=== PATIENT | female | born 1940 | race Caucasian/White ===

== ENCOUNTER 2016-03-31 06:37 | Day surgery (SDC) | payer MEDICARE, BC ==
[2016-03-31] MEDS ORDERED: Lactated Ringers 1,000 ML IV SCH ×2 (07:30→11:30)
[2016-03-31] MEDS ORDERED: Propofol 200 MG/20 ML SDV IV ONE (08:00)
[2016-03-31] MEDS ORDERED: Midazolam 1 MG/ML 2 ML SDV IV ONE (08:00)
--- NOTE | 2016-03-31 08:10 | PCM.HP ---
H&P History of Present Illness - General Date of Service: 03/31/16 Admit Problem/Dx: Admission Diagnosis/Problem Admission Diagnosis/Problem Colonoscopy Hematochezia for the past weel; Has Hx of polyps and FH of Colon Ca Source of Information: Patient History Limitations: Reports: No limitations - Related Data Allergies/Adverse Reactions: Allergies Allergy/AdvReac Type Severity Reaction Status Date / Time aspirin Allergy Severe Anaphylactic Verified 03/31/16 06:58 Shock Home Medications: Home Meds Albuterol [Ventolin HFA] 2 puff INH QID 04/14/13 [History] Fluticasone Propionate [Flonase] 1 spray NASBOTH DAILY 04/14/13 [History] Levothyroxine Sodium [Synthroid] 112 mcg PO ACBRK 04/14/13 [History] Losartan/Hydrochlorothiazide [Hyzaar 100-25] 25 - 100 mg PO DAILY 04/14/13 [ History] Metoprolol Succinate [Toprol XL 100mg] 100 mg PO DAILY 04/14/13 [History] Montelukast [Singulair] 10 mg PO BEDTIME 04/14/13 [History] Multivitamin with Minerals [Multiple Vitamin] 1 tab PO DAILY 04/14/13 [History] Sertraline [Zoloft] 25 mg PO DAILY 04/14/13 [History] amLODIPine [Norvasc] 10 mg PO DAILY 04/14/13 [History] atorvaSTATin [Lipitor] 20 mg PO DAILY 04/14/13 [History] hydrOXYzine Pamoate [Vistaril] 25 mg PO ASDIRECTED PRN 04/14/13 [History] Fluticasone/Salmeterol [Advair 250-50 Diskus] 1 puff PO BID PRN 03/30/16 [ History] Past Medical History HEENT History: Reports: Allergic rhinitis Other HEENT History: OCC POST NASAL DRIP Cardiovascular History: Reports: High cholesterol, Hypertension Respiratory History: Reports: Asthma Gastrointestinal History: Reports: Colon polyp, Other (see below) Other Gastrointestinal History: 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: , 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 Other OB/BYN History: PARA IV AB II Musculoskeletal History: Reports: Fracture Other Musculoskeletal History: LEFT METATARSAL FX 04/2015 Neurological History: Reports: Other (see below) Other Neuro History: FREQUENT H/A, STATES MOSTLY FROM SINUS Psychiatric History: Reports: Depression Endocrine/Metabolic History: Reports: Hypothyroidism, Obesity/BMI 30+, Other ( see below) Other Endocrine/Metabolic History: PRE DIABETES Immunologic History: Reports: None Oncologic (Cancer) History: Reports: None - Infectious Disease History Infectious Disease History: Reports: Chicken pox, Measles - Past Surgical History Head Surgeries/Procedures: Reports: None HEENT Surgical History: Reports: Naso-sinus surgery, Oral surgery, Tonsillectomy Other HEENT Surgeries/Procedures: WISDOM TEETH EXTRACTION, NUMEROUS NASAL POLYP SURGIES GI Surgical History: Reports: Colonoscopy Female Surgical History: Reports: D&C, Hysterectomy Other Female Surgeries/Procedures: JACKSON Musculoskeletal Surgical History: Reports: Knee replacement Other Musculoskeletal Surgeries/Procedures:: BILATERAL KNEE REPLACEMENTS Social & Family History - Tobacco Use Smoking Status *Q: Never Smoker - Caffeine Use Caffeine Use: Reports: Coffee - Alcohol Use Days Per Week of Alcohol Use: 1 Number of Drinks Per Day: 1 Total Drinks Per Week: 1 - Recreational Drug Use Recreational Drug Use: No H&P Review of Systems - Review of Systems: Review Of Systems: See Below General: Reports: no symptoms Pulmonary: Reports: no symptoms Cardiovascular: Reports: no symptoms Gastrointestinal: Reports: No symptoms Genitourinary: Reports: no symptoms Exam - Exam Exam: See Below - Vital Signs Vital Signs: Last Vital Signs Temp 97.6 F 03/31/16 07:03 Pulse 86 03/31/16 07:03 Resp 16 03/31/16 07:03 BP 145/68 H 03/31/16 07:03 Pulse Ox 98 03/31/16 07:03 Weight: 113.398 kg - Exam General: alert, oriented Lungs: Clear to auscultation, Normal respiratory effort Cardiovascular: regular rate, regular rhythm Abdomen: normal bowel sounds, soft *Q Meaningful Use (ADM) - VTE *Q VTE Criteria *Q: - Stroke *Q Stroke Criteria *Q: - AMI *Q AMI Criteria *Q: Problem List Initiated/Reviewed/Updated: Yes Orders Last 24hrs: Active Orders 24 hr Category Date Time Status Patient Status [ADT] Routine ADT 03/31/16 06:45 Ordered Patient to Empty Bladder [RC] ASDIRECTED Care 03/31/16 06:45 Active Verify Patient Consent Obtain [RC] ASDIRECTED Care 03/31/16 07:30 Active Lactated Ringers [Ringers, Lactated] 1,000 ml Med 03/31/16 07:30 Active IV ASDIRECTED Peripheral IV Insertion Adult [OM.PC] Routine Oth 03/31/16 07:30 Ordered Resuscitation Status Routine Resus Stat 03/30/16 08:28 Ordered Medication Orders Lactated Ringer's (Ringers, Lactated) 1,000 mls @ 125 mls/hr IV ASDIRECTED RIKKI Last Admin: 03/31/16 07:39 Dose: 125 mls/hr Assessment/Plan Comment:: A) Hematochezia P) Will proceed with colonoscopy
--- NOTE | 2016-03-31 08:48 | PCM.OPNOTE ---
- General Post-Op/Procedure Note Date of Surgery/Procedure: 03/31/16 Operative Procedure(s): Colonoscopy with polypectomy and Bx's Findings: Colon polyps Proctitis Pre Op Diagnosis: Hematochezia Post-Op Diagnosis: Same Anesthesia Technique: VICENTE Primary Surgeon: Miguel Rodriguez Anesthesia Provider: Genesis Huff Complications: None Condition: Good
[2016-03-31 10:16] VITALS: BP 139/70
--- NOTE | 2016-03-31 12:05 | OR ---
DATE OF OPERATION: 03/31/2016 SURGEON: Miguel Rodriguez MD PREOPERATIVE DIAGNOSES: 1. Hematochezia. 2. Family history of colon cancer. 3. Personal history of colon polyps. POSTOPERATIVE DIAGNOSES: 1. Proctitis. 2. Colon polyps. PROCEDURES PERFORMED: 1. Colonoscopy with polypectomy. 2. Rectal biopsy. ANESTHESIA: IV sedation. DESCRIPTION OF PROCEDURE: The patient was brought to the procedure room, where she was placed on her left side and IV sedation administered. Digital rectal exam was performed, which was normal. The colonoscope was inserted and advanced to the level of the cecum with some difficulty getting around the hepatic flexure requiring pressure on the abdomen. I was able to reach the cecum, which was confirmed by identifying the appendiceal lumen and ileocecal valve. Prep was good and surfaces were well visualized. Upon withdrawing the scope, the ascending colon was normal and the transverse colon was a small 5 mm sessile polyp, removed with hot biopsy forceps and sent for pathology review. The similar sized polyp was seen in the descending colon at 70 cm, which was also removed with the hot biopsy forceps. In the sigmoid colon at 20 cm from the anal verge, was a 6 mm sessile polyp, removed with the hot biopsy forceps. All these will be sent for pathology review. The source of her hematochezia was diffuse proctitis up to 20 cm from the anal verge. The mucosa was friable with evidence of recent bleeding. No ulcers were seen. I did 3 biopsies from the rectum. Retroflexion was normal. Air was removed and the scope was withdrawn. The patient tolerated the procedure well and returned to recovery in stable condition. The patient will be started on Rowasa suppositories or enemas depending on what her local pharmacy has. I will see her back in followup in 2 weeks. /[id number] ROBEL/[place]
== END 2016-03-31 10:08 | disposition home or self-care (01) ==
LOC: FB.SDS 06:37
PROVIDERS: ATTEND Surgery
PROC: 0DBM8ZX Excision of Descending Colon, Via Natural or Artificial Opening Endoscopic, Diagnostic (ICD-10-PCS; principal; 2016-03-31)
PROC: 0DBL8ZX Excision of Transverse Colon, Via Natural or Artificial Opening Endoscopic, Diagnostic (ICD-10-PCS; 2016-03-31)
PROC: 0DBN8ZX Excision of Sigmoid Colon, Via Natural or Artificial Opening Endoscopic, Diagnostic (ICD-10-PCS; 2016-03-31)
PROC: 0DBP8ZX Excision of Rectum, Via Natural or Artificial Opening Endoscopic, Diagnostic (ICD-10-PCS; 2016-03-31)
DX: D12.4 Benign neoplasm of descending colon (principal); D12.5 Benign neoplasm of sigmoid colon; D12.3 Benign neoplasm of transverse colon; K52.9 Noninfective gastroenteritis and colitis, unspecified; K62.89 Other specified diseases of anus and rectum; E78.00 Pure hypercholesterolemia, unspecified; I10 Essential (primary) hypertension; J45.909 Unspecified asthma, uncomplicated; E03.9 Hypothyroidism, unspecified; E66.9 Obesity, unspecified; R73.03 Prediabetes; F32.9 Major depressive disorder, single episode, unspecified; Z79.899 Other long term (current) drug therapy; Z88.8 Allergy status to other drugs, medicaments and biological substances
CPT/HCPCS: 00810; 45380; 45384; 88305; J2250; J2704; J7120

== ENCOUNTER 2016-08-01 08:28 | Day surgery (SDC) | payer MEDICARE, BC ==
[2016-08-01] MEDS ORDERED: Sodium Chloride 0.9% 10 ML Syringe FLUSH PRN (08:30)
[2016-08-01] MEDS ORDERED: Propofol 200 MG/20 ML SDV IV ONE (10:45)
[2016-08-01 14:22] VITALS: BP 188/88
--- NOTE | 2016-08-01 16:45 | OR ---
DATE OF OPERATION: 08/01/2016 SURGEON: Steven Herrera MD PREOPERATIVE DIAGNOSIS: Cataract, left eye. POSTOPERATIVE DIAGNOSIS: Cataract, left eye. OPERATION PERFORMED: Phacoemulsification of cataract left eye with placement of an Zamudio, model ZCB00, 21.5 Diopter, foldable, posterior chamber intraocular lens. 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 DESCRIPTION OF PROCEDURE: Peribulbar anesthetic was performed using a mixture of 2% lidocaine with Wydase. The patient was prepped and draped in the usual fashion. A 3 mm fornix based conjunctival flap was performed at the 10 o'clock position. Hemostasis was obtained using diathermy, and a 2.8 mm grooved near clear corneal incision was then made. A stab incision was made into the anterior chamber at the 12 o'clock position and a second stab wound incision was made underlying the grooved near clear corneal incision. Viscoat was instilled into the anterior chamber, and a continuous tear capsulotomy was performed. Hydrodissection was accomplished with balanced salt solution, and the nucleus was removed in a divide and conquer fashion. The remaining cortical material was removed with the irrigation and aspiration unit. Viscoat was instilled into the anterior chamber, and an Zamudio, model ZCB00, 21.5 Diopter, foldable, posterior chamber intraocular lens was placed into the capsular bag, the haptics being positioned at the 1 and 7 o'clock positions. The residual Viscoat was removed from the anterior chamber and the anterior chamber reformed with balanced salt solution. The wound was checked and noted to be watertight. The conjunctiva was secured in its original position with diathermy. Alphagan and Maxitrol Ointment were then placed into the patient's eye. The patient tolerated the procedure well and it was without complication. Elapsed phacoemulsification time was 42.8 seconds. Postoperative instructions as related to activities as well as medications were reviewed with the patient. The patient was instructed to return to see me on the day following surgery for the first postoperative check. The patient was also instructed to contact me prior to that time if the patient were to have any problems. /[id number] DEG/MODL CC: KIRA Rodriguez NP MTDD
== END 2016-08-01 12:25 | disposition home or self-care (01) ==
LOC: FB.SDS 08:28
PROVIDERS: ATTEND Ophthalmology
PROC: 08RK3JZ Replacement of Left Lens with Synthetic Substitute, Percutaneous Approach (ICD-10-PCS; principal; 2016-08-01)
DX: H26.9 Unspecified cataract (principal); I10 Essential (primary) hypertension; E78.5 Hyperlipidemia, unspecified; J45.909 Unspecified asthma, uncomplicated
CPT/HCPCS: 00142; 66984; A4217; C1780; J2704; J7050

== ENCOUNTER 2016-08-29 09:54 | Day surgery (SDC) | payer MEDICARE, BC ==
[2016-08-29] MEDS ORDERED: Sodium Chloride 0.9% 10 ML Syringe FLUSH PRN (10:00)
[2016-08-29] MEDS ORDERED: Propofol 200 MG/20 ML SDV IV ONE (12:15)
[2016-08-29 13:59] VITALS: BP 142/71
--- NOTE | 2016-08-30 10:24 | OR ---
DATE OF OPERATION: 08/29/2016 SURGEON: Steven Herrera MD PREOPERATIVE DIAGNOSIS: Cataract, right eye. POSTOPERATIVE DIAGNOSIS: Cataract, right eye. PROCEDURE: Phacoemulsification of cataract, right eye with placement of an Zamudio model ZCB00, 21.5 diopter, foldable posterior chamber intraocular lens. ARTIST'S REPRESENTATIVE: None. DESCRIPTION OF PROCEDURE: Peribulbar anesthetic was performed using a mixture of 2% lidocaine with Wydase. The patient was prepped and draped in the usual fashion. A 3 mm fornix based conjunctival flap was performed at the 10 o'clock position. Hemostasis was obtained using diathermy, and a 2.8 mm grooved near clear corneal incision was then made. A stab incision was made into the anterior chamber at the 12 o'clock position and a second stab wound incision was made underlying the grooved near clear corneal incision. Viscoat was instilled into the anterior chamber, and a continuous tear capsulotomy was performed. Hydrodissection was accomplished with balanced salt solution, and the nucleus was removed in a divide and conquer fashion. The remaining cortical material was removed with the irrigation and aspiration unit. Viscoat was instilled into the anterior chamber, and an Zamudio, model ZCB00, 21.5 diopter, foldable, posterior chamber intraocular lens was placed into the capsular bag, the haptics being positioned at the 1 and 7 o'clock positions. The residual Viscoat was removed from the anterior chamber and the anterior chamber reformed with balanced salt solution. The wound was checked and noted to be watertight. The conjunctiva was secured in its original position with diathermy. Alphagan and Maxitrol Ointment were then placed into the patient's eye. The patient tolerated the procedure well and it was without complication. Elapsed phacoemulsification time was 33.7 seconds. Postoperative instructions as related to activities as well as medications were reviewed with the patient. The patient was instructed to return to see me on the day following surgery for the first postoperative check. The patient was also instructed to contact me prior to that time if she were to have any problems. /[id number] DEG/MODL CC: KIRA Rodriguez, [facility]
== END 2016-08-29 12:53 | disposition home or self-care (01) ==
LOC: FB.SDS 09:54
PROVIDERS: ATTEND Ophthalmology
PROC: 08RJ3JZ Replacement of Right Lens with Synthetic Substitute, Percutaneous Approach (ICD-10-PCS; principal; 2016-08-29)
DX: H26.9 Unspecified cataract (principal); I15.9 Secondary hypertension, unspecified; E78.5 Hyperlipidemia, unspecified; E03.9 Hypothyroidism, unspecified; J45.20 Mild intermittent asthma, uncomplicated; R73.03 Prediabetes; G25.0 Essential tremor
CPT/HCPCS: 00142; 66984; A4217; C1780; J2704; J7050

== ENCOUNTER 2018-05-30 06:51 | Day surgery (SDC) | payer MEDICARE, BC ==
[~2018-05-30 06:51] MED LIST: Lactated Ringers 1,000 ML IV SCH
[2018-05-30] MEDS ORDERED: Propofol 200 MG/20 ML SDV IV ONE (06:52)
--- NOTE | 2018-05-30 08:14 | PCM.HP ---
H&P History of Present Illness - General Date of Service: 05/30/18 Admit Problem/Dx: Admission Diagnosis/Problem Admission Diagnosis/Problem Colonoscopy Source of Information: Patient, Old Records History Limitations: Reports: No Limitations - History of Present Illness Initial Comments - Free Text/Narative: Here for colonoscopy for hx polyps - Related Data Allergies/Adverse Reactions: Allergies Allergy/AdvReac Type Severity Reaction Status Date / Time aspirin Allergy Severe Anaphylactic Verified 05/30/18 07:08 Shock Home Medications: Home Meds Albuterol [Ventolin HFA] 2 puff INH QID PRN 04/14/13 [History] Fluticasone Propionate [Flonase] 2 spray NASBOTH DAILY 04/14/13 [History] Levothyroxine Sodium [Synthroid] 112 mcg PO ACBRK 04/14/13 [History] Losartan/Hydrochlorothiazide [Hyzaar 100-25] 1 tab PO DAILY 04/14/13 [History] Metoprolol Succinate [Toprol XL 100mg] 100 mg PO DAILY 04/14/13 [History] Montelukast [Singulair] 10 mg PO BEDTIME 04/14/13 [History] Multivitamin with Minerals [Multiple Vitamin] 1 tab PO DAILY 04/14/13 [History] Sertraline [Zoloft] 12.5 mg PO DAILY 04/14/13 [History] amLODIPine [Norvasc] 10 mg PO DAILY 04/14/13 [History] atorvaSTATin [Lipitor] 20 mg PO DAILY 04/14/13 [History] hydrOXYzine pamoate [Vistaril] 25 mg PO QID 04/14/13 [History] Fluticasone/Salmeterol [Advair 250-50 Diskus] 1 puff PO BID 03/30/16 [History] Gabapentin [Neurontin] 1 cap PO BID 05/29/18 [History] Past Medical History HEENT History: Reports: Allergic Rhinitis Other HEENT History: OCC POST NASAL DRIP Cardiovascular History: Reports: High Cholesterol, Hypertension Respiratory History: Reports: Asthma Gastrointestinal History: Reports: Colon Polyp, Other (See Below) 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: , 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 Other OB/BYN History: PARA IV AB II Musculoskeletal History: Reports: Fracture Other Musculoskeletal History: LEFT METATARSAL FX 04/2015 Neurological History: Reports: Other (See Below) Other Neuro History: ESSENTIAL TREMOR Psychiatric History: Reports: Depression Endocrine/Metabolic History: Reports: Hypothyroidism Other Endocrine/Metabolic History: PREDIABETIC Hematologic History: Reports: Blood Transfusion(s) Immunologic History: Reports: None Oncologic (Cancer) History: Reports: None Other Dermatologic History: PRURITUS, ITCHING - Infectious Disease History Infectious Disease History: Reports: Chicken Pox, Measles, Mumps - Past Surgical History Head Surgeries/Procedures: Reports: None HEENT Surgical History: Reports: Naso-Sinus Surgery, Oral Surgery, Tonsillectomy Other HEENT Surgeries/Procedures: WISDOM TEETH EXTRACTION, NUMEROUS NASAL POLYP SURGIES GI Surgical History: Reports: Colonoscopy Female Surgical History: Reports: D&C, Hysterectomy Other Female Surgeries/Procedures: JACKSON Musculoskeletal Surgical History: Reports: Knee Replacement Other Musculoskeletal Surgeries/Procedures:: BILATERAL KNEE REPLACEMENTS Social & Family History - Family History Family Medical History: Noncontributory - Tobacco Use Smoking Status *Q: Never Smoker - Caffeine Use Caffeine Use: Reports: Coffee - Recreational Drug Use Recreational Drug Use: No Drug Use in Last 12 Months: No H&P Review of Systems - Review of Systems: Review Of Systems: ROS reveals no pertinent complaints other than HPI. Exam - Exam Exam: See Below - Vital Signs Vital Signs: Last Vital Signs Temp 98.1 F 05/30/18 07:16 Pulse 65 05/30/18 07:16 Resp 17 05/30/18 07:16 BP 156/71 H 05/30/18 07:16 Pulse Ox 97 05/30/18 07:16 Weight: 108.409 kg - Exam General: Alert, Oriented Lungs: Clear to Auscultation, Normal Respiratory Effort Cardiovascular: Regular Rate, Regular Rhythm GI/Abdominal Exam: Soft, Non-Tender - Patient Data Lab Results Last 24 hrs: Laboratory Results - last 24 hr 05/30/18 Range/Units 07:22 POC Glucose 95 (80-116) mg/dL Problem List Initiated/Reviewed/Updated: Yes Orders Last 24hrs: Active Orders 24 hr Category Date Time Status Patient Status [ADT] Routine ADT 05/30/18 06:45 Ordered Blood Glucose Check, Bedside [RC] ONETIME Care 05/30/18 07:19 Active Patient to Empty Bladder [RC] ASDIRECTED Care 05/30/18 06:45 Active Verify Patient Consent Obtain [RC] ASDIRECTED Care 05/30/18 06:45 Active Nothing Per Oral Diet [DIET] Diet 05/29/18 Dinner Ordered Lactated Ringers [Ringers, Lactated] 1,000 ml Med 05/30/18 06:45 Active IV ASDIRECTED Peripheral IV Insertion Adult [OM.PC] Routine Oth 05/30/18 06:45 Ordered Resuscitation Status Routine Resus Stat 05/29/18 11:11 Ordered Medication Orders Lactated Ringer's (Ringers, Lactated) 1,000 mls @ 125 mls/hr IV ASDIRECTED [facility] Last Admin: 05/30/18 07:37 Dose: 125 mls/hr Assessment/Plan Comment:: Hx Colon polyps; ok to proceed
--- NOTE | 2018-05-30 08:39 | PCM.OPNOTE ---
- General Post-Op/Procedure Note Date of Surgery/Procedure: 05/30/18 Operative Procedure(s): Colonoscopy with Bx Findings: Proctitis Pre Op Diagnosis: Hx Polyps; Hx Proctitis Post-Op Diagnosis: Same Anesthesia Technique: MAC Primary Surgeon: Miguel Rodriguez Pathology: Rectal Bx Complications: None Condition: Good
[2018-05-30 13:55] VITALS: BP 138/64
--- NOTE | 2018-05-30 15:37 | OR ---
DATE OF OPERATION: 05/30/2018 SURGEON: Miguel Rodriguez MD PREOPERATIVE DIAGNOSES: 1. History of colon polyps. 2. History of proctitis. POSTOPERATIVE DIAGNOSIS: Proctitis. OPERATION PERFORMED: Colonoscopy with biopsy. ANESTHESIA: IV sedation. PROCEDURE: The patient was brought to the procedure room, where she was placed on left side and IV sedation administered. Digital rectal exam was performed, which was normal. Colonoscope was inserted and advanced to the level of the cecum with some difficulty getting around the hepatic flexure requiring pressure on the abdomen. The cecum was reached and confirmed by identifying the appendiceal lumen and ileocecal valve. Prep was good and surfaces were well visualized. Upon withdrawing the scope, the ascending, transverse, and descending colon were normal in appearance. Sigmoid colon was normal. Rectum has diffuse mild to moderate proctitis in the distal 10 cm. I did take 3 random biopsies from here. There was no active bleeding present. Air was removed and the scope withdrawn. The patient tolerated the procedure well and returned to recovery in stable condition. The patient will be contacted with the pathology report when it returns. This appears to be a symptomatic proctitis and no treatment would be necessary unless she has symptoms. No further colon screenings are necessary due to her age. /[id number] ROBEL/[place]
== END 2018-05-30 09:40 | disposition home or self-care (01) ==
LOC: FB.SDS 06:51
PROVIDERS: ATTEND Surgery
DX: Z12.11 Encounter for screening for malignant neoplasm of colon (principal); K62.89 Other specified diseases of anus and rectum; K52.9 Noninfective gastroenteritis and colitis, unspecified; I10 Essential (primary) hypertension; E78.00 Pure hypercholesterolemia, unspecified; E03.9 Hypothyroidism, unspecified; J45.909 Unspecified asthma, uncomplicated; F32.9 Major depressive disorder, single episode, unspecified; R73.03 Prediabetes; Z88.6 Allergy status to analgesic agent; Z86.010 Personal history of colon polyps; Z79.51 Long term (current) use of inhaled steroids; Z79.899 Other long term (current) drug therapy
CPT/HCPCS: 00812-QZ; 82962; 88305; J2704; J7120

== ENCOUNTER 2021-06-07 11:23 | Emergency (ER) | payer MEDICARE, BC ==
[2021-06-07] MEDS ORDERED: Sodium Chloride 0.9% 10 ML Syringe FLUSH PRN (11:33)
[2021-06-07 11:52] VITALS: BP 159/66; PULSE 56
== END 2021-06-07 13:00 | disposition home or self-care (01) ==
LOC: FB.ED 11:23
DX: R55 Syncope and collapse (principal); E86.0 Dehydration; E78.00 Pure hypercholesterolemia, unspecified; J45.909 Unspecified asthma, uncomplicated; E03.9 Hypothyroidism, unspecified; I10 Essential (primary) hypertension; Z90.710 Acquired absence of both cervix and uterus; Z79.899 Other long term (current) drug therapy; Z88.6 Allergy status to analgesic agent
CPT/HCPCS: 36415; 70450; 80053; 84484; 85025; 93005; 99284-25; J3490